=== PATIENT | male | born 1970 | race Caucasian/White ===

== ENCOUNTER 2016-11-22 13:41 | Emergency (ER) | payer OTHER | END 2016-11-22 15:00 | disposition home or self-care (01) | LOC: ER 13:41 | DX: R07.2 Precordial pain (principal); I10 Essential (primary) hypertension; F17.210 Nicotine dependence, cigarettes, uncomplicated; Z88.6 Allergy status to analgesic agent | CPT/HCPCS: 36415; 96360 ==

== ENCOUNTER 2016-12-17 04:02 | Emergency (ER) | payer SELFPAY | END 2016-12-17 04:09 | disposition home or self-care (01) | LOC: ER 04:02 | DX: S22.32XA Fracture of one rib, left side, initial encounter for closed fracture (principal); S70.02XA Contusion of left hip, initial encounter; S30.1XXA Contusion of abdominal wall, initial encounter; S00.81XA Abrasion of other part of head, initial encounter; F10.129 Alcohol abuse with intoxication, unspecified; I10 Essential (primary) hypertension; F17.210 Nicotine dependence, cigarettes, uncomplicated; Z88.8 Allergy status to other drugs, medicaments and biological substances; V49.60XA Unspecified car occupant injured in collision with unspecified motor vehicles in traffic accident, initial encounter | CPT/HCPCS: 36415; 73502-LT; G0480; Q9967 ==